=== PATIENT | female | born 1950 | race Caucasian/White ===

== ENCOUNTER 2017-07-20 10:47 | Day surgery (SDC) | payer OTHER ==
[~2017-07-20 10:47] MED LIST: ETOMIDATE 20 MG INJ
[2017-07-20] MEDS ORDERED: LACTATED RINGER'S 1,000 ML IV* (11:00)
[2017-07-20] MEDS ORDERED: CEFAZOLIN 2 GM/50 ML (PMX) 50 ML IVPB (11:00)
[2017-07-20] MEDS ORDERED: BUPIVACAINE 0.5% (SDV) 30 ML INJ (12:54)
[2017-07-20] MEDS ORDERED: LIDOCAINE 1% (MPF) 30 ML INJ (12:54)
[2017-07-20] MEDS ORDERED: POLYMYXIN/BACITRACIN 1L IRRIG (12:55)
[2017-07-20] MEDS ORDERED: LIDOCAINE 1% (MDV) 20 ML INJ (16:18)
[2017-07-20] MEDS ORDERED: CEFAZOLIN 1 GM INJ (16:18)
== END 2017-07-20 15:45 | disposition home or self-care (01) ==
LOC: SDS 10:47
DX: Z47.2 Encounter for removal of internal fixation device (principal); E11.9 Type 2 diabetes mellitus without complications; I10 Essential (primary) hypertension; E78.5 Hyperlipidemia, unspecified
CPT/HCPCS: 20680; 73090; 82962

== ENCOUNTER 2017-10-14 07:22 | Emergency (ER) | payer OTHER ==
[2017-10-14 08:22] LABS: ADD UMIC YES; UR ASCORBIC ACID NEGATIVE (NEGATIVE); UR BACTERIA FEW /HPF (NONE SEEN); UR BILIRUBIN (Dip) NEGATIVE (NEGATIVE); UR BLOOD (Dip) 2+ mg/dL (NEGATIVE); UR CLARITY CLOUDY (CLEAR); UR COLOR YELLOW (YELLOW); UR GLUCOSE (Dip) 1+ mg/dL (NEGATIVE); UR KETONES (Dip) NEGATIVE (NEGATIVE); UR LEUKOCYTE ESTERASE (Dip) 3+ Leu/ul (NEGATIVE); UR MUCUS FEW /HPF (NONE SEEN); UR NITRITE (Dip) POSITIVE (NEGATIVE); UR RBC 11 /HPF (0-5); UR SPECIFIC GRAVITY (Dip) 1.006 (1.003-1.030); UR TOTAL PROTEIN (Dip) 1+ mg/dl (NEGATIVE); UR UROBILINOGEN (Dip) NEGATIVE (NEGATIVE); UR WBC > 182 /HPF (0-5)
[2017-10-14] MEDS: LIDOCAINE 1% (MDV) 10 ML INJ INFIL (08:53)
[2017-10-14] MEDS: CEFTRIAXONE 1 GM INJ IM (08:53)
== END 2017-10-14 09:19 | disposition home or self-care (01) ==
LOC: FTE 07:22
DX: N39.0 Urinary tract infection, site not specified (principal); R31.9 Hematuria, unspecified; I10 Essential (primary) hypertension; E11.9 Type 2 diabetes mellitus without complications; Z45.018 Encounter for adjustment and management of other part of cardiac pacemaker; Z79.4 Long term (current) use of insulin; Z79.82 Long term (current) use of aspirin
CPT/HCPCS: 81001; 87086; 96372; 99284-25

== ENCOUNTER 2017-11-16 10:15 | Emergency (ER) | payer OTHER ==
[2017-11-16] MEDS: KETOROLAC 30 MG INJ IM (11:38)
== END 2017-11-16 14:03 | disposition home or self-care (01) ==
LOC: FTE 14:03
DX: R07.9 Chest pain, unspecified (principal); M25.511 Pain in right shoulder; M54.6 Pain in thoracic spine; I10 Essential (primary) hypertension; E11.9 Type 2 diabetes mellitus without complications; Z79.4 Long term (current) use of insulin; Z79.82 Long term (current) use of aspirin; Z86.73 Personal history of transient ischemic attack (TIA), and cerebral infarction without residual deficits; Z95.0 Presence of cardiac pacemaker
CPT/HCPCS: 71100; 72072; 96372; 99284-25

== ENCOUNTER 2018-01-31 18:18 | Inpatient (IN) | payer OTHER ==
[2018-01-31 19:58] LABS: ADD MAN DIFF? NO
[2018-01-31 20:03] LABS: WHITE BLOOD COUNT 7.6 10^3/ul (4.8-10.8)
[2018-01-31 20:03] LABS: ADD UMIC YES; BASOPHIL # 0.1 10^3/ul (0.0-0.1); BASOPHILS % 0.7 % (0.0-2.0); EOSINOPHILS # 0.6 10^3/ul (0.0-0.5); EOSINOPHILS % 7.7 % (0.0-7.0); HEMATOCRIT 34.8 % (37.0-47.0); HEMOGLOBIN 11.2 g/dl (12.0-16.0); LYMPHOCYTES # 1.9 10^3/ul (0.8-2.9); LYMPHOCYTES % 25.3 % (15.0-51.0); MEAN CORPUSCULAR HEMOGLOBIN 29.2 pg (29.0-33.0); MEAN CORPUSCULAR HGB CONC 32.2 g/dl (32.0-37.0); MEAN CORPUSCULAR VOLUME 90.6 fl (82.0-101.0); MEAN PLATELET VOLUME 11.7 fl (7.4-10.4); MONOCYTE # 0.6 10^3/ul (0.3-0.9); MONOCYTES % 7.5 % (0.0-11.0); NEUTROPHIL # 4.5 10^3/ul (1.6-7.5); NEUTROPHILS % 58.4 % (39.0-77.0); PLATELET COUNT 302 10^3/UL (140-415); RED BLOOD COUNT 3.84 10^6/ul (4.20-5.40); RED CELL DISTRIBUTION WIDTH 15.4 % (11.5-14.5); UR ASCORBIC ACID NEGATIVE (NEGATIVE); UR BILIRUBIN (Dip) NEGATIVE (NEGATIVE); UR BLOOD (Dip) NEGATIVE (NEGATIVE); UR CLARITY CLEAR (CLEAR); UR COLOR STRAW (YELLOW); UR GLUCOSE (Dip) 3+ mg/dL (NEGATIVE); UR KETONES (Dip) NEGATIVE (NEGATIVE); UR LEUKOCYTE ESTERASE (Dip) NEGATIVE Leu/ul (NEGATIVE); UR NITRITE (Dip) NEGATIVE (NEGATIVE); UR RBC 5 /HPF (0-5); UR SPECIFIC GRAVITY (Dip) 1.017 (1.003-1.030); UR TOTAL PROTEIN (Dip) 1+ mg/dl (NEGATIVE); UR UROBILINOGEN (Dip) NEGATIVE (NEGATIVE); UR WBC 5 /HPF (0-5)
[2018-01-31 20:04] LABS: INR 0.98; PROTIME 13.1 Sec (11.9-14.9)
[2018-01-31 20:05] LABS: PARTIAL THROMBOPLASTIN TIME 30.9 Sec (23.0-35.0)
[2018-01-31 20:25] LABS: AADO2 Arterial 31.2 mmHg (7.0-24.0); Allen Test ACCEPTAB; Arterial Blood Gas Oxygen Sat 91.6 mmHG (95.0-98.0); Arterial COHb 0.6 % (0.0-3.0); Arterial Fraction of Oxyhgb 91.1 % (93.0-99.0); Arterial HCO3 21.9 mmol/L (22.0-26.0); Arterial MetHb 0 % (0.0-1.5); Arterial pCO2 43.2 mmhg (35-45); MODE ROOM AIR; Site Right Radial
[2018-01-31 20:29] LABS: ALANINE AMINOTRANSFERASE 6 IU/L (13-69); ALBUMIN 4.2 g/dl (3.3-4.9); ALBUMIN/GLOBULIN RATIO 1.13; ALKALINE PHOSPHATASE 170 IU/L (42-121); ANION GAP 12 (5-13); ASPARTATE AMINO TRANSFERASE 56 IU/L (15-46); BILIRUBIN,INDIRECT 0.1 mg/dl (0-1.1); BILIRUBIN,TOTAL 0.1 mg/dl (0.2-1.3); BLOOD UREA NITROGEN 33 mg/dl (7-20); CALCIUM 9.4 mg/dl (8.4-10.2); CARBON DIOXIDE 18 mmol/L (21-31); CHLORIDE 111 mmol/L (97-110); CREATININE 0.83 mg/dl (0.44-1.00); Estimated GFR > 60 mL/min (>60); LIPASE 100 U/L (23-300); SODIUM 141 mmol/L (135-144); TOTAL PROTEIN 7.9 g/dl (6.1-8.1)
[2018-01-31 20:40] LABS: GLUCOSE 517 mg/dl (70-220); POTASSIUM 6.9 mmol/L (3.5-5.1)
[2018-01-31 20:41] LABS: B-TYPE NATRIURETIC PEPTIDE 1380 PG/ML (0-125); TROPONIN-I 0.013 ng/ml (0.000-0.120)
[2018-01-31] MEDS ORDERED: DEXTROSE 50% 50 ML SYRINGE IV ×5 (21:00→23:45)
[2018-01-31] MEDS: ALBUTEROL 0.083% (NEB) 2.5 MG/3 ML AMP HHN (21:03)
[2018-01-31] MEDS ORDERED: SODIUM CHLORIDE 23.4% 77 MEQ in DEXTROSE 10% 1,000 ML IV (21:13)
[2018-01-31] MEDS ORDERED: SODIUM CHLORIDE 23.4% 77 MEQ, POTASSIUM CHLORIDE 30 MEQ in DEXTROSE 10% 1,000 ML IV (21:13)
[2018-01-31] MEDS ORDERED: POTASSIUM CHLORIDE 30 MEQ in SOD CHLORIDE 0.9% 1,000 ML IV (21:13)
[2018-01-31] MEDS ORDERED: POTASSIUM CHLORIDE 40 MEQ in SOD CHLORIDE 0.9% 1,000 ML IV (21:13)
[2018-01-31] MEDS ORDERED: SODIUM CHLORIDE 23.4% 77 MEQ, POTASSIUM CHLORIDE 40 MEQ in DEXTROSE 10% 1,000 ML IV (21:13)
[2018-01-31] MEDS: INSULIN REGULAR, HUMAN 100 UNIT/1 ML 3ML VIAL IVP (21:17)
[2018-01-31] MEDS: FUROSEMIDE 40 MG INJ IV (21:20)
[2018-01-31] MEDS ORDERED: INSULIN REGULAR, HUMAN 100 UNIT in SOD CHLORIDE 0.9% 100 ML IV (21:30)
[2018-01-31 21:44] LABS: HEMOGLOBIN A1C 8.9 % (0-5.9)
[2018-01-31] MEDS ORDERED: ONDANSETRON 4 MG INJ IV (23:30)
[2018-01-31] MEDS ORDERED: HYDROCODONE/APAP (5/325) TAB PO (23:30)
[2018-01-31] MEDS ORDERED: NACL 0.9% 3 ML SYG IV (23:30)
[2018-01-31] MEDS ORDERED: ACETAMINOPHEN 325 MG TAB PO (23:30)
[2018-01-31] MEDS ORDERED: GLUCOSE GEL 15 GRAM TUBE PO ×2 (23:45)
[2018-01-31] MEDS ORDERED: GLUCOSE GEL 15 GRAM TUBE BUCCAL (23:45)
[2018-01-31] MEDS ORDERED: GLUCAGON 1 MG INJ IM (23:45)
[2018-01-31] MEDS: hydrALAzine 20 MG INJ IV (23:57)
[2018-01-31] MEDS: SOD CHLORIDE 0.9% 1,000 ML IV (23:58)
[2018-02-01 00:32] LABS: ANION GAP 13 (5-13); BLOOD UREA NITROGEN 33 mg/dl (7-20); CARBON DIOXIDE 23 mmol/L (21-31); CHLORIDE 106 mmol/L (97-110); CREATININE 0.89 mg/dl (0.44-1.00); Estimated GFR > 60 mL/min (>60); MAGNESIUM 1.7 mg/dl (1.7-2.5); PHOSPHORUS 4.5 mg/dl (2.5-4.9); POTASSIUM 4.9 mmol/L (3.5-5.1); SODIUM 142 mmol/L (135-144)
[2018-02-01 00:40] LABS: GLUCOSE 461 mg/dl (70-220)
[2018-02-01] MEDS: INSULIN GLARGINE [LANTus] (100 UNITS/ML) SYG SC ×2 (00:43→20:31)
[2018-02-01] MEDS: INSULIN ASPART [NOVOLOG] 3 ML PEN SC ×9 (00:43→20:31)
[2018-02-01] MEDS: SOD CHLORIDE 0.9% 1,000 ML IV ×3 (01:23→16:13)
[2018-02-01] MEDS ORDERED: ACCU-CHEK XX (02:00)
[2018-02-01 06:39] LABS: ADD MAN DIFF? NO
[2018-02-01 06:49] LABS: BASOPHIL # 0.1 10^3/ul (0.0-0.1); BASOPHILS % 0.6 % (0.0-2.0); EOSINOPHILS # 0.6 10^3/ul (0.0-0.5); EOSINOPHILS % 6.5 % (0.0-7.0); HEMATOCRIT 35.5 % (37.0-47.0); HEMOGLOBIN 11.3 g/dl (12.0-16.0); LYMPHOCYTES # 2.1 10^3/ul (0.8-2.9); LYMPHOCYTES % 24.1 % (15.0-51.0); MEAN CORPUSCULAR HEMOGLOBIN 28.9 pg (29.0-33.0); MEAN CORPUSCULAR HGB CONC 31.8 g/dl (32.0-37.0); MEAN CORPUSCULAR VOLUME 90.8 fl (82.0-101.0); MEAN PLATELET VOLUME 11.3 fl (7.4-10.4); MONOCYTE # 0.8 10^3/ul (0.3-0.9); MONOCYTES % 8.8 % (0.0-11.0); NEUTROPHIL # 5.2 10^3/ul (1.6-7.5); NEUTROPHILS % 59.7 % (39.0-77.0); PLATELET COUNT 279 10^3/UL (140-415); RED BLOOD COUNT 3.91 10^6/ul (4.20-5.40); RED CELL DISTRIBUTION WIDTH 15.2 % (11.5-14.5)
[2018-02-01 06:49] LABS: WHITE BLOOD COUNT 8.7 10^3/ul (4.8-10.8)
[2018-02-01 07:01] LABS: HEMOGLOBIN A1C 8.7 % (0-5.9)
[2018-02-01 07:23] LABS: ANION GAP 14 (5-13); BLOOD UREA NITROGEN 30 mg/dl (7-20); CALCIUM 9.6 mg/dl (8.4-10.2); CARBON DIOXIDE 22 mmol/L (21-31); CHLORIDE 111 mmol/L (97-110); CREATININE 0.83 mg/dl (0.44-1.00); Estimated GFR > 60 mL/min (>60); GLUCOSE 246 mg/dl (70-220); MAGNESIUM 1.5 mg/dl (1.7-2.5); PHOSPHORUS 4.2 mg/dl (2.5-4.9); POTASSIUM 4.2 mmol/L (3.5-5.1); SODIUM 147 mmol/L (135-144)
[2018-02-01] MEDS: ASPIRIN (EC) 81 MG TAB PO (08:12)
[2018-02-01] MEDS: LOSARTAN 50 MG TAB PO (08:12)
[2018-02-01] MEDS: GEMFIBROZIL 600 MG TAB PO ×2 (08:12→20:18)
[2018-02-01] MEDS: FUROSEMIDE 40 MG INJ IV (08:13)
[2018-02-01] MEDS: NAPROXEN 500 MG TAB PO (08:14)
[2018-02-01] MEDS: MAGNESIUM SULFATE 2 GM/50 ML 50 ML IVPB (08:58)
[2018-02-01 09:43] LABS: CARBON DIOXIDE 16 mmol/L (21-31); Estimated GFR > 60 mL/min (>60); MAGNESIUM 1.5 mg/dl (1.7-2.5); POTASSIUM 5.2 mmol/L (3.5-5.1)
[2018-02-01 10:03] LABS: ANION GAP 17 (5-13); BLOOD UREA NITROGEN 28 mg/dl (7-20); CALCIUM 9.1 mg/dl (8.4-10.2); CHLORIDE 110 mmol/L (97-110); CREATININE 0.73 mg/dl (0.44-1.00); GLUCOSE 124 mg/dl (70-220); PHOSPHORUS 4.7 mg/dl (2.5-4.9); SODIUM 143 mmol/L (135-144)
[2018-02-01 14:18] LABS: ADD UMIC YES; UR ASCORBIC ACID NEGATIVE (NEGATIVE); UR BACTERIA FEW /HPF (NONE SEEN); UR BILIRUBIN (Dip) NEGATIVE (NEGATIVE); UR BLOOD (Dip) 1+ mg/dL (NEGATIVE); UR CLARITY CLEAR (CLEAR); UR COLOR STRAW (YELLOW); UR GLUCOSE (Dip) NEGATIVE (NEGATIVE); UR KETONES (Dip) NEGATIVE (NEGATIVE); UR LEUKOCYTE ESTERASE (Dip) NEGATIVE Leu/ul (NEGATIVE); UR MUCUS FEW /HPF (NONE SEEN); UR NITRITE (Dip) NEGATIVE (NEGATIVE); UR RBC 1 /HPF (0-5); UR SPECIFIC GRAVITY (Dip) 1.006 (1.003-1.030); UR TOTAL PROTEIN (Dip) NEGATIVE (NEGATIVE); UR UROBILINOGEN (Dip) NEGATIVE (NEGATIVE); UR WBC 2 /HPF (0-5)
[2018-02-01 19:34] LABS: ANION GAP 13 (5-13); BLOOD UREA NITROGEN 31 mg/dl (7-20); CALCIUM 8.6 mg/dl (8.4-10.2); CARBON DIOXIDE 18 mmol/L (21-31); CHLORIDE 107 mmol/L (97-110); CREATININE 0.86 mg/dl (0.44-1.00); Estimated GFR > 60 mL/min (>60); GLUCOSE 282 mg/dl (70-220); SODIUM 138 mmol/L (135-144)
[2018-02-01 19:55] LABS: MAGNESIUM 2.1 mg/dl (1.7-2.5)
[2018-02-01] MEDS: ATORVASTATIN 40 MG TAB PO (20:18)
[2018-02-02] MEDS: SOD CHLORIDE 0.9% 1,000 ML IV ×2 (01:22→07:24)
[2018-02-02] MEDS: INSULIN ASPART [NOVOLOG] 3 ML PEN SC ×6 (01:22→12:10)
[2018-02-02 06:28] LABS: ADD MAN DIFF? NO
[2018-02-02 06:32] LABS: BASOPHILS % 0.5 % (0.0-2.0); EOSINOPHILS # 0.4 10^3/ul (0.0-0.5); EOSINOPHILS % 5.2 % (0.0-7.0); HEMOGLOBIN 10.5 g/dl (12.0-16.0); LYMPHOCYTES # 2.6 10^3/ul (0.8-2.9); MEAN CORPUSCULAR HEMOGLOBIN 28.8 pg (29.0-33.0); MEAN CORPUSCULAR HGB CONC 31.8 g/dl (32.0-37.0); MEAN CORPUSCULAR VOLUME 90.4 fl (82.0-101.0); MEAN PLATELET VOLUME 11.4 fl (7.4-10.4); MONOCYTE # 0.7 10^3/ul (0.3-0.9); MONOCYTES % 9.1 % (0.0-11.0); NEUTROPHIL # 3.7 10^3/ul (1.6-7.5); NEUTROPHILS % 49.9 % (39.0-77.0); PLATELET COUNT 269 10^3/UL (140-415); RED BLOOD COUNT 3.65 10^6/ul (4.20-5.40); RED CELL DISTRIBUTION WIDTH 14.8 % (11.5-14.5)
[2018-02-02 06:32] LABS: WHITE BLOOD COUNT 7.5 10^3/ul (4.8-10.8)
[2018-02-02 06:50] LABS: PROTIME 14.4 Sec (11.9-14.9); PT RATIO 1.1
[2018-02-02 06:54] LABS: ALANINE AMINOTRANSFERASE 21 IU/L (13-69); ALBUMIN 3.5 g/dl (3.3-4.9); ALBUMIN/GLOBULIN RATIO 1.12; ALKALINE PHOSPHATASE 90 IU/L (42-121); ANION GAP 11 (5-13); ASPARTATE AMINO TRANSFERASE 31 IU/L (15-46); BILIRUBIN,INDIRECT 0.2 mg/dl (0-1.1); BILIRUBIN,TOTAL 0.2 mg/dl (0.2-1.3); BLOOD UREA NITROGEN 27 mg/dl (7-20); CALCIUM 8.4 mg/dl (8.4-10.2); CARBON DIOXIDE 19 mmol/L (21-31); CHLORIDE 112 mmol/L (97-110); CREATININE 0.78 mg/dl (0.44-1.00); Estimated GFR > 60 mL/min (>60); GLUCOSE 150 mg/dl (70-220); MAGNESIUM 2.1 mg/dl (1.7-2.5); POTASSIUM 4.6 mmol/L (3.5-5.1); SODIUM 142 mmol/L (135-144); TOTAL PROTEIN 6.6 g/dl (6.1-8.1)
[2018-02-02 07:07] LABS: TROPONIN-I 0.019 ng/ml (0.000-0.120)
[2018-02-02] MEDS: ASPIRIN (EC) 81 MG TAB PO (09:05)
[2018-02-02] MEDS: GEMFIBROZIL 600 MG TAB PO (09:05)
[2018-02-02 09:38] LABS: ADD UMIC YES; UR ASCORBIC ACID NEGATIVE (NEGATIVE); UR BILIRUBIN (Dip) NEGATIVE (NEGATIVE); UR BLOOD (Dip) NEGATIVE (NEGATIVE); UR CLARITY CLEAR (CLEAR); UR COLOR YELLOW (YELLOW); UR GLUCOSE (Dip) NEGATIVE (NEGATIVE); UR KETONES (Dip) NEGATIVE (NEGATIVE); UR LEUKOCYTE ESTERASE (Dip) TRACE Leu/ul (NEGATIVE); UR NITRITE (Dip) NEGATIVE (NEGATIVE); UR RBC 1 /HPF (0-5); UR SPECIFIC GRAVITY (Dip) 1.014 (1.003-1.030); UR TOTAL PROTEIN (Dip) 1+ mg/dl (NEGATIVE); UR UROBILINOGEN (Dip) NEGATIVE (NEGATIVE); UR WBC 11 /HPF (0-5)
== END 2018-02-02 13:44 | disposition home or self-care (01) | DRG 637 ==
LOC: E/R 18:18 → TEL 21:23
DX: E11.10 Type 2 diabetes mellitus with ketoacidosis without coma (principal); I50.43 Acute on chronic combined systolic (congestive) and diastolic (congestive) heart failure; I42.9 Cardiomyopathy, unspecified; E88.81 Metabolic syndrome and other insulin resistance; E87.5 Hyperkalemia; I11.0 Hypertensive heart disease with heart failure; E78.5 Hyperlipidemia, unspecified; E86.0 Dehydration; Z79.4 Long term (current) use of insulin; Z79.82 Long term (current) use of aspirin; Z90.49 Acquired absence of other specified parts of digestive tract; Z95.810 Presence of automatic (implantable) cardiac defibrillator
CPT/HCPCS: 36415; 36600; 71045; 80048; 80053; 81001; 82803; 82962; 83036; 83690; 83735; 83880; 84100; 84443; 84484; 85025; 85610; 85730; 93005; 94644; 96374; 96375; 99291-25

== ENCOUNTER 2018-05-08 17:34 | Inpatient (IN) | payer OTHER ==
[2018-05-09 00:16] LABS: ADD MAN DIFF? NO
[2018-05-09 00:19] LABS: WHITE BLOOD COUNT 9.6 10^3/ul (4.8-10.8)
[2018-05-09 00:19] LABS: BASOPHIL # 0.1 10^3/ul (0.0-0.1); BASOPHILS % 0.5 % (0.0-2.0); EOSINOPHILS # 0.8 10^3/ul (0.0-0.5); HEMATOCRIT 30.5 % (37.0-47.0); HEMOGLOBIN 9.4 g/dl (12.0-16.0); LYMPHOCYTES # 2.2 10^3/ul (0.8-2.9); LYMPHOCYTES % 23.1 % (15.0-51.0); MEAN CORPUSCULAR HGB CONC 30.8 g/dl (32.0-37.0); MEAN CORPUSCULAR VOLUME 94.1 fl (82.0-101.0); MEAN PLATELET VOLUME 10.4 fl (7.4-10.4); MONOCYTE # 0.9 10^3/ul (0.3-0.9); MONOCYTES % 9.6 % (0.0-11.0); NEUTROPHIL # 5.6 10^3/ul (1.6-7.5); NEUTROPHILS % 58.3 % (39.0-77.0); PLATELET COUNT 388 10^3/UL (140-415); RED BLOOD COUNT 3.24 10^6/ul (4.20-5.40); RED CELL DISTRIBUTION WIDTH 14.8 % (11.5-14.5)
[2018-05-09 00:33] LABS: INR 1.05; PROTIME 13.8 Sec (11.9-14.9); PT RATIO 1.1
[2018-05-09 00:37] LABS: ALANINE AMINOTRANSFERASE 15 IU/L (13-69); ALBUMIN 4.2 g/dl (3.3-4.9); ALBUMIN/GLOBULIN RATIO 1.13; ALKALINE PHOSPHATASE 151 IU/L (42-121); ANION GAP 13 (5-13); ASPARTATE AMINO TRANSFERASE 24 IU/L (15-46); BILIRUBIN,INDIRECT 0.1 mg/dl (0-1.1); BILIRUBIN,TOTAL 0.1 mg/dl (0.2-1.3); BLOOD UREA NITROGEN 26 mg/dl (7-20); CALCIUM 9.5 mg/dl (8.4-10.2); CARBON DIOXIDE 23 mmol/L (21-31); CHLORIDE 110 mmol/L (97-110); CREATININE 1.06 mg/dl (0.44-1.00); Estimated GFR 52 mL/min (>60); GLUCOSE 84 mg/dl (70-220); LIPASE 63 U/L (23-300); POTASSIUM 5.1 mmol/L (3.5-5.1); SODIUM 146 mmol/L (135-144); TOTAL PROTEIN 7.9 g/dl (6.1-8.1)
[2018-05-09 00:50] LABS: B-TYPE NATRIURETIC PEPTIDE 1300 PG/ML (0-125)
[2018-05-09 00:50] LABS: TROPONIN-I 0.014 ng/ml (0.000-0.120)
[2018-05-09] MEDS ORDERED: ONDANSETRON 4 MG INJ IV (01:30)
[2018-05-09] MEDS ORDERED: ACETAMINOPHEN 325 MG TAB PO ×2 (01:30→04:00)
[2018-05-09] MEDS: FUROSEMIDE 40 MG INJ IV ×3 (01:46→21:22)
[2018-05-09] MEDS ORDERED: ALBUTEROL/IPRATROPIUM (NEB) 3 ML AMP HHN (04:00)
[2018-05-09] MEDS ORDERED: NACL 0.9% 3 ML SYG IV (04:00)
[2018-05-09 06:27] LABS: CREATINE KINASE 65 IU/L (23-200)
[2018-05-09] MEDS ORDERED: GLUCOSE GEL 15 GRAM TUBE BUCCAL (06:30)
[2018-05-09] MEDS ORDERED: GLUCOSE GEL 15 GRAM TUBE PO ×2 (06:30)
[2018-05-09] MEDS ORDERED: DEXTROSE 50% 50 ML SYRINGE IV ×2 (06:30)
[2018-05-09] MEDS ORDERED: GLUCAGON 1 MG INJ IM (06:30)
[2018-05-09 06:39] LABS: CK INDEX 2.1; CK-MB 1.35 ng/ml (0.0-2.4); TROPONIN-I < 0.012 ng/ml (0.000-0.120)
[2018-05-09] MEDS: INSULIN ASPART [NOVOLOG] 3 ML PEN SC ×5 (08:19→22:08)
[2018-05-09 09:22] LABS: LACTIC ACID 1.2 mmol/L (0.5-2.0)
[2018-05-09] MEDS: GEMFIBROZIL 600 MG TAB PO ×2 (09:57→23:52)
[2018-05-09] MEDS: ASPIRIN (EC) 81 MG TAB PO (09:57)
[2018-05-09] MEDS: HEPARIN 5,000 UNIT/1 ML VIAL SC ×2 (09:58→21:54)
[2018-05-09] MEDS: FUROSEMIDE 20 MG INJ IV (09:58)
[2018-05-09 10:04] LABS: CREATINE KINASE 60 IU/L (23-200)
[2018-05-09 10:20] LABS: CK INDEX 2.2; CK-MB 1.32 ng/ml (0.0-2.4); TROPONIN-I < 0.012 ng/ml (0.000-0.120)
[2018-05-09] MEDS: HYDROCODONE/APAP (10/325) TAB PO (11:02)
[2018-05-09] MEDS: THIAMINE 100 MG TAB PO (13:30)
[2018-05-09] MEDS: SOD CHLORIDE 0.9% 100 ML (16:56)
[2018-05-09] MEDS: IOHEXOL 300MG/ML 150 ML BTL (16:57)
[2018-05-09] MEDS: ATORVASTATIN 40 MG TAB PO (21:20)
[2018-05-09] MEDS: SENNA/DOCUSATE NA (8.6MG/50MG) TAB PO (21:21)
[2018-05-10] MEDS: INSULIN ASPART [NOVOLOG] 3 ML PEN SC ×7 (01:23→20:42)
[2018-05-10] MEDS: SOD CHLORIDE 0.9% 500 ML IV (01:28)
[2018-05-10] MEDS: INSULIN GLARGINE [LANTus] (100 UNITS/ML) SYG SC ×2 (02:07→20:41)
[2018-05-10] MEDS: ONDANSETRON 4 MG INJ IV (03:10)
[2018-05-10] MEDS: ACCU-CHEK XX (03:30)
[2018-05-10 05:24] LABS: ADD MAN DIFF? NO
[2018-05-10 05:30] LABS: BASOPHIL # 0.1 10^3/ul (0.0-0.1); BASOPHILS % 0.6 % (0.0-2.0); EOSINOPHILS # 0.4 10^3/ul (0.0-0.5); EOSINOPHILS % 3.5 % (0.0-7.0); HEMATOCRIT 28.8 % (37.0-47.0); LYMPHOCYTES # 1.8 10^3/ul (0.8-2.9); LYMPHOCYTES % 17.8 % (15.0-51.0); MEAN CORPUSCULAR HEMOGLOBIN 28.1 pg (29.0-33.0); MEAN CORPUSCULAR HGB CONC 31.3 g/dl (32.0-37.0); MEAN PLATELET VOLUME 10.8 fl (7.4-10.4); MONOCYTE # 0.9 10^3/ul (0.3-0.9); MONOCYTES % 9.2 % (0.0-11.0); NEUTROPHIL # 6.9 10^3/ul (1.6-7.5); NEUTROPHILS % 68.4 % (39.0-77.0); PLATELET COUNT 369 10^3/UL (140-415); RED CELL DISTRIBUTION WIDTH 14.4 % (11.5-14.5)
[2018-05-10 05:41] LABS: HEMOGLOBIN A1C 8.6 % (0-5.9)
[2018-05-10 06:00] LABS: ALANINE AMINOTRANSFERASE 10 IU/L (13-69); ALBUMIN/GLOBULIN RATIO 1.21; ALKALINE PHOSPHATASE 122 IU/L (42-121); ANION GAP 14 (5-13); ASPARTATE AMINO TRANSFERASE 23 IU/L (15-46); BLOOD UREA NITROGEN 41 mg/dl (7-20); CALCIUM 9.1 mg/dl (8.4-10.2); CARBON DIOXIDE 29 mmol/L (21-31); CHLORIDE 97 mmol/L (97-110); CHOL/HDL RATIO 2.4 RATIO; CHOLESTEROL 112 mg/dl (100-200); CREATININE 1.54 mg/dl (0.44-1.00); Estimated GFR 34 mL/min (>60); GLUCOSE 250 mg/dl (70-220); HDL CHOLESTEROL 46 mg/dl (35-98); LDL CHOLESTEROL,CALCULATED 37 mg/dl; MAGNESIUM 1.6 mg/dl (1.7-2.5); POTASSIUM 4.4 mmol/L (3.5-5.1); SODIUM 140 mmol/L (135-144); TOTAL PROTEIN 7.3 g/dl (6.1-8.1); TRIGLYCERIDES 144 mg/dl (0-149)
[2018-05-10] MEDS: ASPIRIN (EC) 81 MG TAB PO (09:01)
[2018-05-10] MEDS: GEMFIBROZIL 600 MG TAB PO ×2 (09:01→20:24)
[2018-05-10] MEDS: FUROSEMIDE 20 MG INJ IV (09:02)
[2018-05-10] MEDS: HEPARIN 5,000 UNIT/1 ML VIAL SC ×2 (09:04→20:41)
[2018-05-10] MEDS: FUROSEMIDE 40 MG INJ IV (11:45)
[2018-05-10] MEDS: BISACODYL (EC) 5 MG TAB PO (11:45)
[2018-05-10] MEDS ORDERED: BISACODYL (EC) 5 MG TAB PO (13:00)
[2018-05-10] MEDS ORDERED: BISACODYL 10 MG SUPP PR (13:00)
[2018-05-10] MEDS: ACETYLCYSTEINE 600 MG CAP PO ×2 (14:01→20:24)
[2018-05-10] MEDS: SENNA/DOCUSATE NA (8.6MG/50MG) TAB PO (20:24)
[2018-05-10] MEDS: ATORVASTATIN 40 MG TAB PO (20:24)
[2018-05-10] MEDS: SOD CHLORIDE 0.9% 1,000 ML IV (23:14)
[2018-05-11] MEDS: ACCU-CHEK XX (02:21)
[2018-05-11 06:30] LABS: ADD MAN DIFF? NO
[2018-05-11 06:33] LABS: WHITE BLOOD COUNT 8.1 10^3/ul (4.8-10.8)
[2018-05-11 06:33] LABS: BASOPHIL # 0.1 10^3/ul (0.0-0.1); BASOPHILS % 0.6 % (0.0-2.0); EOSINOPHILS # 0.4 10^3/ul (0.0-0.5); EOSINOPHILS % 4.9 % (0.0-7.0); HEMATOCRIT 28.8 % (37.0-47.0); HEMOGLOBIN 9.3 g/dl (12.0-16.0); LYMPHOCYTES # 2.2 10^3/ul (0.8-2.9); MEAN CORPUSCULAR HEMOGLOBIN 28.9 pg (29.0-33.0); MEAN CORPUSCULAR HGB CONC 32.3 g/dl (32.0-37.0); MEAN CORPUSCULAR VOLUME 89.4 fl (82.0-101.0); MEAN PLATELET VOLUME 11.2 fl (7.4-10.4); MONOCYTE # 0.7 10^3/ul (0.3-0.9); MONOCYTES % 8.3 % (0.0-11.0); NEUTROPHIL # 4.8 10^3/ul (1.6-7.5); NEUTROPHILS % 58.8 % (39.0-77.0); PLATELET COUNT 381 10^3/UL (140-415); RED BLOOD COUNT 3.22 10^6/ul (4.20-5.40); RED CELL DISTRIBUTION WIDTH 14.3 % (11.5-14.5)
[2018-05-11 07:00] LABS: MAGNESIUM 1.7 mg/dl (1.7-2.5)
[2018-05-11 07:00] LABS: PHOSPHORUS 5.7 mg/dl (2.5-4.9)
[2018-05-11 07:04] LABS: ANION GAP 20 (5-13); BLOOD UREA NITROGEN 52 mg/dl (7-20); CALCIUM 8.4 mg/dl (8.4-10.2); CARBON DIOXIDE 19 mmol/L (21-31); CHLORIDE 97 mmol/L (97-110); CREATININE 1.58 mg/dl (0.44-1.00); Estimated GFR 33 mL/min (>60); GLUCOSE 284 mg/dl (70-220); POTASSIUM 4.2 mmol/L (3.5-5.1); SODIUM 136 mmol/L (135-144)
[2018-05-11] MEDS: INSULIN ASPART [NOVOLOG] 3 ML PEN SC ×8 (08:09→21:08)
[2018-05-11] MEDS: GEMFIBROZIL 600 MG TAB PO ×2 (09:00→20:59)
[2018-05-11] MEDS: ASPIRIN (EC) 81 MG TAB PO (09:00)
[2018-05-11] MEDS: HEPARIN 5,000 UNIT/1 ML VIAL SC ×2 (09:05→21:07)
[2018-05-11] MEDS: ACETYLCYSTEINE 600 MG CAP PO ×2 (11:01→21:00)
[2018-05-11 13:47] LABS: AADO2 Arterial 15.4 mmHg (7.0-24.0); Allen Test ACCEPTAB; Arterial Base Excess -0.4 mmol/L (-3.0-3); Arterial Blood Gas Oxygen Sat 94.3 mmHG (95.0-98.0); Arterial COHb 0.3 % (0.0-3.0); Arterial Fraction of Oxyhgb 93.9 % (93.0-99.0); Arterial HCO3 25.3 mmol/L (22.0-26.0); Arterial MetHb 0.1 % (0.0-1.5); Arterial pCO2 46.2 mmhg (35-45); MODE ROOM AIR; Site Right Radial
[2018-05-11 18:15] LABS: CREATININE,URINE RANDOM 72.03 mg/dl (20-320); PROTEIN/CREAT RATIO 0.37 RATIO
[2018-05-11] MEDS: SOD CHLORIDE 0.9% 1,000 ML IV (18:46)
[2018-05-11 20:25] LABS: SODIUM,URINE RANDOM 32 mmol/L (30-90)
[2018-05-11] MEDS: ATORVASTATIN 40 MG TAB PO (20:59)
[2018-05-11] MEDS: SENNA/DOCUSATE NA (8.6MG/50MG) TAB PO ×2 (21:00)
[2018-05-11] MEDS: INSULIN GLARGINE [LANTus] (100 UNITS/ML) SYG SC (21:07)
[2018-05-12] MEDS: ACCU-CHEK XX (02:30)
[2018-05-12 06:20] LABS: ADD MAN DIFF? NO
[2018-05-12 06:29] LABS: BASOPHIL # 0.1 10^3/ul (0.0-0.1); BASOPHILS % 0.8 % (0.0-2.0); EOSINOPHILS # 0.6 10^3/ul (0.0-0.5); EOSINOPHILS % 7.9 % (0.0-7.0); HEMATOCRIT 31.3 % (37.0-47.0); HEMOGLOBIN 9.9 g/dl (12.0-16.0); LYMPHOCYTES # 1.9 10^3/ul (0.8-2.9); LYMPHOCYTES % 26.7 % (15.0-51.0); MEAN CORPUSCULAR HGB CONC 31.6 g/dl (32.0-37.0); MEAN CORPUSCULAR VOLUME 91.8 fl (82.0-101.0); MEAN PLATELET VOLUME 11.6 fl (7.4-10.4); MONOCYTE # 0.8 10^3/ul (0.3-0.9); MONOCYTES % 10.9 % (0.0-11.0); NEUTROPHIL # 3.9 10^3/ul (1.6-7.5); NEUTROPHILS % 53.3 % (39.0-77.0); PLATELET COUNT 325 10^3/UL (140-415); RED BLOOD COUNT 3.41 10^6/ul (4.20-5.40); RED CELL DISTRIBUTION WIDTH 14.4 % (11.5-14.5)
[2018-05-12 06:29] LABS: WHITE BLOOD COUNT 7.2 10^3/ul (4.8-10.8)
[2018-05-12 06:47] LABS: IRON 30 ug/dl (35-150)
[2018-05-12 06:59] LABS: % IRON SATURATION 8 % SAT (22-52); TOTAL IRON BINDING CAPACITY 380 ug/dl (241-421)
[2018-05-12 07:25] LABS: ALANINE AMINOTRANSFERASE 27 IU/L (13-69); ALBUMIN 3.7 g/dl (3.3-4.9); ALBUMIN/GLOBULIN RATIO 1.15; ALKALINE PHOSPHATASE 132 IU/L (42-121); ANION GAP 11 (5-13); ASPARTATE AMINO TRANSFERASE 24 IU/L (15-46); BLOOD UREA NITROGEN 39 mg/dl (7-20); CALCIUM 9.5 mg/dl (8.4-10.2); CARBON DIOXIDE 28 mmol/L (21-31); CHLORIDE 104 mmol/L (97-110); Estimated GFR 55 mL/min (>60); GLUCOSE 169 mg/dl (70-220); POTASSIUM 4.4 mmol/L (3.5-5.1); SODIUM 143 mmol/L (135-144); TOTAL PROTEIN 6.9 g/dl (6.1-8.1)
[2018-05-12] MEDS: ACETYLCYSTEINE 600 MG CAP PO ×2 (07:57→20:18)
[2018-05-12] MEDS: GEMFIBROZIL 600 MG TAB PO ×2 (07:58→20:19)
[2018-05-12] MEDS: ASPIRIN (EC) 81 MG TAB PO (07:58)
[2018-05-12 08:00] LABS: FERRITIN 14.6 ng/ml (11.1-264.0)
[2018-05-12] MEDS: INSULIN ASPART [NOVOLOG] 3 ML PEN SC ×7 (08:07→20:49)
[2018-05-12] MEDS: HEPARIN 5,000 UNIT/1 ML VIAL SC ×2 (08:07→20:49)
[2018-05-12] MEDS: SOD CHLORIDE 0.9% 1,000 ML IV (15:00)
[2018-05-12] MEDS: NIFEdipine (XL) 60 MG TAB PO (15:04)
[2018-05-12] MEDS: ATORVASTATIN 40 MG TAB PO (20:18)
[2018-05-12] MEDS: SENNA/DOCUSATE NA (8.6MG/50MG) TAB PO (20:19)
[2018-05-12] MEDS: INSULIN GLARGINE [LANTus] (100 UNITS/ML) SYG SC (20:49)
[2018-05-13] MEDS: ACCU-CHEK XX (02:28)
[2018-05-13] MEDS: SOD CHLORIDE 0.9% 1,000 ML IV (02:29)
[2018-05-13 07:08] LABS: ANION GAP 9 (5-13); BLOOD UREA NITROGEN 27 mg/dl (7-20); CALCIUM 9.3 mg/dl (8.4-10.2); CARBON DIOXIDE 22 mmol/L (21-31); CHLORIDE 109 mmol/L (97-110); CREATININE 0.94 mg/dl (0.44-1.00); Estimated GFR 59 mL/min (>60); GLUCOSE 258 mg/dl (70-220); POTASSIUM 4.1 mmol/L (3.5-5.1); SODIUM 140 mmol/L (135-144)
[2018-05-13] MEDS: ASPIRIN (EC) 81 MG TAB PO (07:57)
[2018-05-13] MEDS: GEMFIBROZIL 600 MG TAB PO (07:58)
[2018-05-13] MEDS: ACETYLCYSTEINE 600 MG CAP PO (07:58)
[2018-05-13] MEDS: HEPARIN 5,000 UNIT/1 ML VIAL SC (07:59)
[2018-05-13] MEDS: INSULIN ASPART [NOVOLOG] 3 ML PEN SC ×6 (08:00→16:45)
[2018-05-13] MEDS: NIFEdipine (XL) 60 MG TAB PO (08:05)
[2018-05-13] MEDS: SOD FERRIC GLUC COMPLX 125 MG in SOD CHLORIDE 0.9% 100 ML IVPB (12:20)
[2018-05-14 14:00] LABS: ADD UMIC NO; UR ASCORBIC ACID NEGATIVE (NEGATIVE); UR BILIRUBIN (Dip) NEGATIVE (NEGATIVE); UR BLOOD (Dip) NEGATIVE (NEGATIVE); UR CLARITY CLEAR (CLEAR); UR COLOR YELLOW (YELLOW); UR GLUCOSE (Dip) NEGATIVE (NEGATIVE); UR KETONES (Dip) NEGATIVE (NEGATIVE); UR LEUKOCYTE ESTERASE (Dip) NEGATIVE Leu/ul (NEGATIVE); UR NITRITE (Dip) NEGATIVE (NEGATIVE); UR SPECIFIC GRAVITY (Dip) 1.015 (1.003-1.030); UR TOTAL PROTEIN (Dip) NEGATIVE (NEGATIVE); UR UROBILINOGEN (Dip) NEGATIVE (NEGATIVE)
== END 2018-05-13 18:20 | disposition home or self-care (01) | DRG 291 ==
LOC: E/R 17:34 → 6WM 05-09 01:17
PROVIDERS: Internal Medicine
DX: I13.0 Hypertensive heart and chronic kidney disease with heart failure and stage 1 through stage 4 chronic kidney disease, or unspecified chronic kidney disease (principal); I50.23 Acute on chronic systolic (congestive) heart failure; N17.9 Acute kidney failure, unspecified; E11.22 Type 2 diabetes mellitus with diabetic chronic kidney disease; E11.40 Type 2 diabetes mellitus with diabetic neuropathy, unspecified; N14.4 Toxic nephropathy, not elsewhere classified; N18.9 Chronic kidney disease, unspecified; E78.5 Hyperlipidemia, unspecified; N20.0 Calculus of kidney; D63.1 Anemia in chronic kidney disease; I25.5 Ischemic cardiomyopathy; D50.9 Iron deficiency anemia, unspecified; T50.8X5A Adverse effect of diagnostic agents, initial encounter; Y92.230 Patient room in hospital as the place of occurrence of the external cause; Z79.82 Long term (current) use of aspirin; Z79.4 Long term (current) use of insulin; Z87.891 Personal history of nicotine dependence; Z95.810 Presence of automatic (implantable) cardiac defibrillator; Z86.73 Personal history of transient ischemic attack (TIA), and cerebral infarction without residual deficits
CPT/HCPCS: 36415; 36600; 71045; 74178; 76705; 80048; 80053; 80061; 81003; 82550; 82553; 82570; 82607; 82728; 82803; 82962; 83036; 83540; 83605; 83690; 83735; 83880; 84100; 84155; 84300; 84443; 84484; 85025; 85610; 87040; 87400; 89190; 93005; 99285-25

== ENCOUNTER 2018-08-31 11:30 | Emergency (ER) | payer OTHER | END 2018-08-31 13:41 | disposition home or self-care (01) | LOC: FTE 13:41 | DX: L98.8 Other specified disorders of the skin and subcutaneous tissue (principal); H81.10 Benign paroxysmal vertigo, unspecified ear; Z86.73 Personal history of transient ischemic attack (TIA), and cerebral infarction without residual deficits; Z79.4 Long term (current) use of insulin; Z79.82 Long term (current) use of aspirin; Z95.0 Presence of cardiac pacemaker | CPT/HCPCS: 99282 ==

== ENCOUNTER 2018-09-08 10:23 | Emergency (ER) | payer OTHER ==
[2018-09-08 12:41] LABS: ADD MAN DIFF? NO
[2018-09-08 12:42] LABS: WHITE BLOOD COUNT 13.4 10^3/ul (4.8-10.8)
[2018-09-08 12:42] LABS: BASOPHIL # 0.1 10^3/ul (0.0-0.1); BASOPHILS % 0.4 % (0.0-2.0); EOSINOPHILS # 0.5 10^3/ul (0.0-0.5); EOSINOPHILS % 3.8 % (0.0-7.0); HEMATOCRIT 38.2 % (37.0-47.0); HEMOGLOBIN 12.5 g/dl (12.0-16.0); LYMPHOCYTES # 2.3 10^3/ul (0.8-2.9); LYMPHOCYTES % 17.2 % (15.0-51.0); MEAN CORPUSCULAR HEMOGLOBIN 27.4 pg (29.0-33.0); MEAN CORPUSCULAR HGB CONC 32.7 g/dl (32.0-37.0); MEAN CORPUSCULAR VOLUME 83.8 fl (82.0-101.0); MEAN PLATELET VOLUME 10.8 fl (7.4-10.4); MONOCYTE # 0.8 10^3/ul (0.3-0.9); MONOCYTES % 5.7 % (0.0-11.0); NEUTROPHIL # 9.7 10^3/ul (1.6-7.5); NEUTROPHILS % 72.5 % (39.0-77.0); PLATELET COUNT 293 10^3/UL (140-415); RED BLOOD COUNT 4.56 10^6/ul (4.20-5.40); RED CELL DISTRIBUTION WIDTH 14.8 % (11.5-14.5)
[2018-09-08 12:50] LABS: ANION GAP 11 (5-13); BLOOD UREA NITROGEN 33 mg/dl (7-20); CARBON DIOXIDE 26 mmol/L (21-31); CHLORIDE 105 mmol/L (97-110); Estimated GFR 55 mL/min (>60); GLUCOSE 239 mg/dl (70-220); POTASSIUM 4.2 mmol/L (3.5-5.1); SODIUM 142 mmol/L (135-144)
[2018-09-08 13:01] LABS: B-TYPE NATRIURETIC PEPTIDE 1040 PG/ML (0-125); TROPONIN-I < 0.012 ng/ml (0.000-0.120)
[2018-09-08] MEDS: FUROSEMIDE 40 MG INJ IV (13:55)
== END 2018-09-08 14:30 | disposition home or self-care (01) ==
LOC: E/R 10:23
DX: E87.70 Fluid overload, unspecified (principal); E11.9 Type 2 diabetes mellitus without complications; I10 Essential (primary) hypertension; Z79.4 Long term (current) use of insulin; Z86.73 Personal history of transient ischemic attack (TIA), and cerebral infarction without residual deficits; Z95.0 Presence of cardiac pacemaker
CPT/HCPCS: 36415; 71045; 80048; 83880; 84484; 85025; 93005; 96374; 99285-25